=== PATIENT | female | born 1950 | race Caucasian/White ===

== ENCOUNTER 2017-01-24 07:30 | Inpatient (IN) | payer MEDICARE, BC ==
[2017-01-18 10:09] LABS: BASOPHILS 0.1 %; BASOPHILS ABSOLUTE 0.01 10/3/uL (0.0-0.16); EOSINOPHILS 0.3 %; EOSINOPHILS ABSOLUTE 0.02 10/3/uL (0.0-0.53); IMMATURE GRANULOCYTES 0.4 %; IMMATURE GRANULOCYTES ABSOLUTE 0.03 10/3/uL (0.0-0.11); LYMPHOCYTES 20.4 %; LYMPHOCYTES ABSOLUTE 1.51 10/3/uL (0.67-4.30); MEAN CORPUS HGB CONC 34.4 g/dL (32.0-36.0); MEAN CORPUSCULAR HEMOGLOB 30.5 pg (26.0-34.0); MEAN CORPUSCULAR VOLUME 88.8 fL (80-100); MEAN PLATELET VOLUME 9.7 fL (9.2-13.0); MONOCYTES 5.5 %; MONOCYTES ABSOLUTE 0.41 10/3/uL (0.21-1.20); NEUTROPHILS 73.3 %; NEUTROPHILS ABSOLUTE 5.43 10/3/uL (2.02-8.40); RBC DISTRIBUTION WIDTH 13.3 % (12.0-16.0); WHITE BLOOD CELLS 7.4 10/3/uL (4.5-10.5)
[2017-01-18 10:14] LABS: HEMATOCRIT 37.2 % (36.0-48.0); HEMOGLOBIN 12.8 g/dL (12.0-16.0); MANUAL DIFF NO %; PLATELET COUNT 168 10/3/uL (150-400); RED CELL COUNT 4.19 10/6/uL (4.0-5.6)
[2017-01-18 10:24] LABS: INTERNATIONAL NORMAL RATI 0.9 UNITS (-)
[2017-01-18 10:25] LABS: A/G RATIO 1.3 (0.7-1.9); ALBUMIN 3.9 G/DL (3.5-5.0); ALKALINE PHOSPHATASE 84 U/L (45-117); BUN (BLOOD UREA NITROGEN) 14 MG/DL (6-23); CALCIUM, SERUM 8.8 MG/DL (8.5-10.4); CHLORIDE, SERUM 102 MMOL/L (96-112); CO2 (CARBON DIOXIDE) 32 MMOL/L (24-34); CREATININE 0.71 MG/DL (0.55-1.02); GFR AFRICAN AMERICAN 104 ML/MIN (>=60); GFR NON AFRICAN AMERICAN 90 ML/MIN (>=60); GLOBULIN 2.9 G/DL (2.5-4.1); GLUCOSE, SERUM 139 MG/DL (60-99); POTASSIUM, SERUM 4.4 MMOL/L (3.5-5.3); SGOT(AST) 18 U/L (5-40); SGPT(ALT) 12 U/L (5-65); SODIUM, SERUM 139 MMOL/L (135-148); TOTAL BILIRUBIN 0.6 MG/DL (0-1.2); TOTAL PROTEIN 6.8 G/DL (6.0-8.5)
[2017-01-18 10:26] LABS: PROTIME (NOT ORD) 12.5 SEC (12.0-14.5)
[2017-01-18 11:05] LABS: ASCORBIC ACID (UR NOT ORDER) NEG (NEG); BILIRUBIN, URINE NEGATIVE (NEG); KETONE, URINE NEGATIVE (NEG); LEUKOCYTE ESTERASE(NOT OR NEG (NEG); WBC (NOT ORDERED) (RFLEX) 1 (0-5)
--- NOTE | ~2017-01-24 | DS ---
Discharge Summary [place] [address] [address] [place]. [address] NAME: ALVARO ALVARADO : 54 STATUS : DIS IN PAT#: [id number] AGE: 66 ADM/REG DATE : 01/24/17 MR#: [id number] REPORT SERV DATE: 02/03/17 DICTATED BY: VALENTINA SULLIVAN DATE: 02/02/17 REPORT STATUS : Draft TRANSCRIBED BY: KAYLENE DATE: 02/02/17 Data Collection from hospitalization DISCHARGE DIAGNOSIS(ES): 1. Failed left hip bipolar-type arthroplasty. 2. Osteoarthritis. 3. Insulin-dependent diabetes mellitus. 4. Hypercholesterolemia. 5. History of cerebrovascular accident. 6. Peripheral neuropathy. 7. Gastroesophageal reflux disease. 8. Asthma. 9. Sleep apnea. CONSULTATIONS: None. PROCEDURES PERFORMED: Left total hip revision arthroplasty, 01/24/2017. PATHOLOGY: Bone, soft tissue, and hardware, left hip joint replacement metallosis of the synovial tissue. No significant acute inflammation. Orthopedic hardware, gross diagnosis. MEDICATIONS: Xanax 0.5 mg three times daily; aspirin 81 mg daily; vitamin B12 at 1000 mcg IM every 30 days; desmopressin each nostril daily as directed; Colace 100 mg twice daily; Pepcid 20 mg twice daily; ferrous sulfate 300 mg with breakfast and supper; Cortef 20 mg at 0900 hours, 10 mg at 1500 hours; Lantus insulin 30 units at bedtime; NovoLog insulin level 2 sliding scale before meals and at bedtime; Synthroid 100 mcg every morning; MS Contin 60 mg every eight hours; Theragran tablet without minerals one with breakfast; Lopressor 25 mg twice daily; Coumadin as directed; Catapres 0.2 mg three times daily; OxyContin 10 mg twice daily; Mylanta 30 mL as needed; Tessalon 200 mg three times daily as needed; Dulcolax 10 mg rectally daily as needed; Symax-SL 0.125 mg three times daily as needed; Dramamine 50 mg every four to six hours as needed; milk of magnesia 30 mL as needed; Zofran 4 mg every four hours as needed; Percocet 5/325 two every four hours as needed; Afrin nasal spray two to three sprays each nostril as needed; MiraLAX powder one packet as needed daily; simethicone 125 mg as needed; Fleet's Enema 133 mL rectally daily as needed; [place] nasal spray one spray each nostril as needed; Ambien 10 mg at bedtime as needed. CONDITION AT DISCHARGE: Upon discharge, she did appear to be doing well and had no complaints. DISPOSITION: She had been discharged with transfer to [facility] to continue a diabetic diet. She was also to continue oxygen at 2 L by nasal cannula to maintain an O2 saturation at or above 92%. She was to continue with physical therapy and occupational therapy. She was to follow up with me in the office in two weeks. HOSPITAL COURSE: This 66-year-old female was seen in the clinic for followup with right knee pain x15 months. She was status post left femoral head replacement in 08/[address] Guaman. She had rated her pain at a 10 on a scale of 0 to 10 and she stated that she had fallen x3 since 2015. She was also status post right total knee arthroplasty in 02/1998 by Discharge [address] [address] NAME: ALVARO ALVARADO : 54 STATUS : DIS IN PAT#: [id number] AGE: 66 ADM/REG DATE : 01/24/17 MR#: [id number] REPORT SERV DATE: 02/03/17 DICTATED BY: VALENTINA SULLIVAN DATE: 02/02/17 REPORT STATUS : Draft TRANSCRIBED BY: KAYLENE DATE: 02/02/17 Dr. Guaman with patella pain, which she had rated as an 8 on a 0 to 10 pain scale. She stated that her pain was much worse. The location of her knee pain was medial and medial joint line. She had related difficulty with stairs, walking any distance, and getting in and out of the car. Her pain was worse upon arising and diminished by changing positions frequently. History of treatment included [place] wrap with relief, brace with relief, MS Contin with relief, and oxycodone with relief. She denied any prior physical therapy and denied prior injections. She was now admitted for surgery and further treatment. Upon admission to the hospital, she had been taken to the operating room, where she did undergo the above procedure. She had tolerated this well and was transferred to the recovery room. On postop day one, she did appear to be doing well and had no complaints. Her INR was at 1.1. She had been evaluated by Physical Therapy. She was placed on sliding scale insulin and her diet was being slowly advanced. On postop day two, she did continue to do well and was continued on her current medications. She had remained in stable condition and as she continued to slowly improve, she was then discharged on 01/28/2017 with the above instructions. Information collected by: Ruth Castanon. I submit the above information as my discharge summary. JERRELL/KAYLENE Lucy Sullivan M.D. / [id number] CC: Lucy Sullivan M.D. [facility]
--- NOTE | ~2017-01-24 | OP ---
Record Of Operation [facility] [address] [place]. [address] NAME: ALVARO ALVARADO : 54 STATUS : ADM IN PAT#: [id number] AGE: 66 ADM/REG DATE : 01/24/17 MR#: [id number] REPORT SERV DATE: 01/24/17 DICTATED BY: VALENTINA SULLIVAN DATE: 01/24/17 REPORT STATUS : Draft TRANSCRIBED BY: MODAndreia DATE: 01/24/17 DATE OF PROCEDURE: 01/24/2017 PREOPERATIVE DIAGNOSIS: Failed left hip bipolar type arthroplasty. POSTOPERATIVE DIAGNOSIS: Failed left hip bipolar type arthroplasty. PROCEDURE: Left total hip revision arthroplasty. PROCEDURE IN DETAIL: The patient was taken to the operating room and placed supine on the table in normal fashion without any incident. General anesthetic was induced per the anesthesiologist. The patient was carefully positioned, padded, prepped, and draped in normal sterile fashion. Sharp dissection was made through the old incision with electrocautery through the fat. IT band was split in line with its fibers. A standard posterior approach to the hip was carried out, we thinned out soft tissue off the posterior capsule. Posterior capsulectomy was performed. There was abundant metal debris containing synovial tissue that was meticulously debrided. The hip was dislocated. The bipolar components were removed. I freed up the proximal aspect of the femoral component with curette, rongeur, and osteotome and then disimpacted it with bone impactor. Sequential reamers were used and broaches. With trial put broach in place, I did a reduction after placing the acetabular component which was done by removing pulvinar fat and using sequential reamers up to a 51 and 52, multi hole cup was placed and impacted. It had excellent interference fit. Two screws placed in standard fashion, drill, depth gauge, and self-tapping screw placement. With a trial liner, there was excellent stability and excellent re-creation of leg length. Therefore, the actual liner was placed, impacted, checked to be sure it was sound and snug. The actual stem was then placed and impacted. I opted not to put a cable for a concern that her osteoporosis was so bad that it could actually cost fracture. She had excellent stability. Actual ball was placed on the cleansed trunnion. Hip was relocated and closed in layered fashion. The wound was dressed sterilely. The patient was awakened and taken to postanesthesia care unit without incident. COMPLICATIONS: None. SPECIMENS: Removed components and cultures. ESTIMATED BLOOD LOSS: About 100 mL. WTB/KAYLENE Lucy Sullivan M.D. / [id number] Record Of [address] [address] NAME: ALVARO ALVARADO : 54 STATUS : ADM IN [facility]#: [id number] AGE: 66 ADM/REG DATE : 01/24/17 MR#: [id number] REPORT SERV DATE: 01/24/17 DICTATED BY: VALENTINA SULLIVAN DATE: 01/24/17 REPORT STATUS : Draft TRANSCRIBED BY: KAYLENE DATE: 01/24/17 CC: Lucy Sullivan M.D.
[~2017-01-24 07:30] MED LIST: ACET500CAP PO; AFRIN15 NAS; AMB10 PO; ASAB PO; BENADRYL; BIOTIN PO; BISR PR; CAFFEINE PO; CAT2 PO; DDAVP 0.01%; DIMENHY50I PO; FLEETS ENEMA; GLUCAGEN IM; GLYCERIN; HUMALOG SC; HYDROCORTISONE; LACTAID PO; LANTUS SC; LOP25 PO; MIRALAX POWDER1 PKT PO; MORPHINE SULFATE ER PO; MYLANTA PO; MYTAB GAS125 MG PO; OXYCODONE IR PO; SALINE NASAL SPRAY; SOLU-CORTEF IJ; SYMAX-SL0.125 MG PO; SYN1 PO; TUSSIN CF; TYLENOL PO; VITAMIN B IJ; X5 PO; ZOFRAN4 PO
[2017-01-25 05:34] LABS: HEMOGLOBIN 11.2 g/dL (12.0-16.0)
[2017-01-25 05:35] LABS: HEMATOCRIT 32.4 % (36.0-48.0)
[2017-01-25 05:46] LABS: BUN (BLOOD UREA NITROGEN) 14 MG/DL (6-23); CALCIUM, SERUM 7.9 MG/DL (8.5-10.4); CHLORIDE, SERUM 97 MMOL/L (96-112); CO2 (CARBON DIOXIDE) 29 MMOL/L (24-34); CREATININE 0.69 MG/DL (0.55-1.02); GFR AFRICAN AMERICAN 107 ML/MIN (>=60); GFR NON AFRICAN AMERICAN 92 ML/MIN (>=60); POTASSIUM, SERUM 4.4 MMOL/L (3.5-5.3); SODIUM, SERUM 136 MMOL/L (135-148)
[2017-01-25 05:47] LABS: GLUCOSE, SERUM 187 MG/DL (60-99); INTERNATIONAL NORMAL RATI 1.1 UNITS (-); PROTIME (NOT ORD) 13.8 SEC (12.0-14.5)
[2017-01-26 04:28] LABS: BASOPHILS 0.1 %; BASOPHILS ABSOLUTE 0.01 10/3/uL (0.0-0.16); EOSINOPHILS 0.2 %; EOSINOPHILS ABSOLUTE 0.02 10/3/uL (0.0-0.53); HEMATOCRIT 30.9 % (36.0-48.0); HEMOGLOBIN 10.6 g/dL (12.0-16.0); IMMATURE GRANULOCYTES 0.5 %; IMMATURE GRANULOCYTES ABSOLUTE 0.05 10/3/uL (0.0-0.11); LYMPHOCYTES 19.7 %; LYMPHOCYTES ABSOLUTE 1.82 10/3/uL (0.67-4.30); MEAN CORPUS HGB CONC 34.3 g/dL (32.0-36.0); MEAN CORPUSCULAR HEMOGLOB 30.6 pg (26.0-34.0); MEAN CORPUSCULAR VOLUME 89.3 fL (80-100); MEAN PLATELET VOLUME 9.8 fL (9.2-13.0); MONOCYTES 5.4 %; NEUTROPHILS 74.1 %; NEUTROPHILS ABSOLUTE 6.84 10/3/uL (2.02-8.40); PLATELET COUNT 152 10/3/uL (150-400); RBC DISTRIBUTION WIDTH 12.9 % (12.0-16.0); RED CELL COUNT 3.46 10/6/uL (4.0-5.6); WHITE BLOOD CELLS 9.2 10/3/uL (4.5-10.5)
[2017-01-26 04:34] LABS: MANUAL DIFF NO %
[2017-01-26 04:35] LABS: INTERNATIONAL NORMAL RATI 1.9 UNITS (-)
[2017-01-26 04:38] LABS: BUN (BLOOD UREA NITROGEN) 14 MG/DL (6-23); CALCIUM, SERUM 8.2 MG/DL (8.5-10.4); CHLORIDE, SERUM 98 MMOL/L (96-112); CO2 (CARBON DIOXIDE) 31 MMOL/L (24-34); CREATININE 0.64 MG/DL (0.55-1.02); GFR AFRICAN AMERICAN 109 ML/MIN (>=60); GFR NON AFRICAN AMERICAN 94 ML/MIN (>=60); GLUCOSE, SERUM 160 MG/DL (60-99); POTASSIUM, SERUM 3.9 MMOL/L (3.5-5.3); SODIUM, SERUM 135 MMOL/L (135-148)
[2017-01-26 04:44] LABS: PROTIME (NOT ORD) 21.3 SEC (12.0-14.5)
[2017-01-27 06:05] LABS: INTERNATIONAL NORMAL RATI 2.5 UNITS (-)
[2017-01-27 06:08] LABS: BASOPHILS 0.1 %; BASOPHILS ABSOLUTE 0.01 10/3/uL (0.0-0.16); EOSINOPHILS 0.4 %; EOSINOPHILS ABSOLUTE 0.03 10/3/uL (0.0-0.53); HEMOGLOBIN 11.7 g/dL (12.0-16.0); IMMATURE GRANULOCYTES 0.7 %; IMMATURE GRANULOCYTES ABSOLUTE 0.05 10/3/uL (0.0-0.11); LYMPHOCYTES 26.4 %; LYMPHOCYTES ABSOLUTE 1.93 10/3/uL (0.67-4.30); MEAN CORPUS HGB CONC 34.4 g/dL (32.0-36.0); MEAN CORPUSCULAR HEMOGLOB 31.1 pg (26.0-34.0); MEAN CORPUSCULAR VOLUME 90.4 fL (80-100); MEAN PLATELET VOLUME 9.7 fL (9.2-13.0); MONOCYTES 6.8 %; NEUTROPHILS 65.6 %; NEUTROPHILS ABSOLUTE 4.79 10/3/uL (2.02-8.40); PLATELET COUNT 167 10/3/uL (150-400); RBC DISTRIBUTION WIDTH 12.9 % (12.0-16.0); RED CELL COUNT 3.76 10/6/uL (4.0-5.6); WHITE BLOOD CELLS 7.3 10/3/uL (4.5-10.5)
[2017-01-27 06:09] LABS: PROTIME (NOT ORD) 27.1 SEC (12.0-14.5)
[2017-01-27 06:14] LABS: MANUAL DIFF NO %
[2017-01-27 06:15] LABS: BUN (BLOOD UREA NITROGEN) 12 MG/DL (6-23); CALCIUM, SERUM 8.6 MG/DL (8.5-10.4); CHLORIDE, SERUM 103 MMOL/L (96-112); CO2 (CARBON DIOXIDE) 31 MMOL/L (24-34); CREATININE 0.63 MG/DL (0.55-1.02); GFR AFRICAN AMERICAN 110 ML/MIN (>=60); GFR NON AFRICAN AMERICAN 95 ML/MIN (>=60); POTASSIUM, SERUM 4.1 MMOL/L (3.5-5.3)
[2017-01-27 06:17] LABS: GLUCOSE, SERUM 107 MG/DL (60-99); SODIUM, SERUM 143 MMOL/L (135-148)
[2017-01-28 05:19] LABS: PROTIME (NOT ORD) 30.5 SEC (12.0-14.5)
== END 2017-01-28 14:47 | DRG 467 ==
LOC: SDC/OF 07:30 → PACU 12:00 → 3JRC 13:42
PROVIDERS: Specialist
PROC: 0SWB0JZ Revision of Synthetic Substitute in Left Hip Joint, Open Approach (ICD-10-PCS; principal; 2017-01-24 09:00)
DX: T84.091A Other mechanical complication of internal left hip prosthesis, initial encounter (principal); E27.40 Unspecified adrenocortical insufficiency; I10 Essential (primary) hypertension; J45.909 Unspecified asthma, uncomplicated; E78.00 Pure hypercholesterolemia, unspecified; I34.0 Nonrheumatic mitral (valve) insufficiency; K21.9 Gastro-esophageal reflux disease without esophagitis; Z79.899 Other long term (current) drug therapy; E11.9 Type 2 diabetes mellitus without complications
CPT/HCPCS: 36415; 71020; 72170; 80048; 80053; 81001; 82962; 85014; 85018; 85025; 85610; 86850; 86900; 86901; 87015; 87070; 87075; 87102; 87116; 87205; 87641; 88304; 88311; 93005; 97110-GP; 97116-GP; 97163-GP; 97164-GP; 97166-GO; 97535-GO; A9270-GY; C1713; C1776; G8978-CL-GP; G8978-CM-GP; G8979-CJ-GP; G8979-CL-GP; J0690; J1170; J1720; J1885; J2175; J2250; J2274; J2370; J2405; J2710; J2795; J3010

== ENCOUNTER 2017-02-07 13:07 | Inpatient (IN) | payer MEDICARE, BC ==
--- NOTE | ~2017-02-07 | HP ---
History And Physical [place] [address] [place]. [address] NAME: ALVARO ALVARADO : 54 STATUS : ADM IN [facility]#: [id number] AGE: 66 ADM/REG DATE : 02/07/17 MR#: [id number] REPORT SERV DATE: 02/07/17 DICTATED BY: VALENTINA SULLIVAN DATE: 02/07/17 REPORT STATUS : Draft TRANSCRIBED BY: MODAndreia DATE: 02/07/17 DATE OF ADMISSION: 02/07/2017 CHIEF COMPLAINT: Left hip pain. HISTORY OF PRESENT ILLNESS: A 66 year female with left total hip revision a couple of weeks ago. She has multiple medical challenges and from her history, it is not clear how long her leg has been hurting and short, and concerned that it was dislocated. To that end, I have discussed with her closed versus possible open reduction. ALLERGIES: MANY, SEE LONG LIST ON CHART. MEDICATIONS: See chart. PAST MEDICAL HISTORY: Arthritis, history of cancer, heart murmur, insulin-dependent diabetes, gastric ulcers, hypercholesterolemia, infection, dental implants, reflux, GERD, asthma, sleep apnea. PAST SURGICAL HISTORY: Appendectomy, cataracts, hip replacements as noted with a recent revision, total knee replacement, skin biopsies, pituitary gland removal, carotid endarterectomy, bilateral partial and middle turbinectomies, removal of ethmoid sinus, open biopsy of the breast in 1997. She had a previous hip replacement revision in 1996, total shoulder in 1995, arthroscopic surgery of the shoulder in 1992, a basal cell cancer and repair of her clitoris in 1980 with partial vulvectomy in 1980, removal of ovary on the right in 1977 and the left in 1975. FAMILY HISTORY: No known anesthetic complications. SOCIAL HISTORY: Never smoked and never used alcohol. PHYSICAL EXAMINATION: GENERAL: She is alert and oriented x3, in no apparent distress. HEENT: Atraumatic, normocephalic. NECK: Supple. CHEST: Symmetric, nontender. LUNGS: Per AA evaluation. CV: Regular. ABDOMEN: Soft. No mass. EXTREMITIES: Both upper extremities and both lower extremities without acute trauma except for left lower extremity is short and rotated. Skin is intact. Compartment supple. 2+ pulses. NEURO: Sensorimotor without deficit. X-RAY: Dislocated left hip revision. ASSESSMENT: Left hip revision and multiple medical issues with dislocation. History And Physical [place] [address] [place]. [address] NAME: ALVARO ALVARADO : 54 STATUS : ADM IN PAT#: [id number] AGE: 66 ADM/REG DATE : 02/07/17 MR#: [id number] REPORT SERV DATE: 02/07/17 DICTATED BY: VALENTINA SULLIVAN DATE: 02/07/17 REPORT STATUS : Draft TRANSCRIBED BY: MODL DATE: 02/07/17 PLAN: Open versus closed reduction. Risks, benefits, etc. Were explained at length, and the patient wishes to proceed. WTB/MODL Lucy Sullivan M.D. / [id number] CC: Lucy Sullivan M.D.
--- NOTE | ~2017-02-07 | DS ---
Discharge Summary [place] [address] [address] [place]. [address] NAME: ALVARO ALVARADO : 54 STATUS : DIS IN PAT#: [id number] AGE: 66 ADM/REG DATE : 02/07/17 MR#: [id number] REPORT SERV DATE: 02/18/17 DICTATED BY: VALENTINA SULLIVAN DATE: 02/17/17 REPORT STATUS : Draft TRANSCRIBED BY: KAYLENE DATE: 02/17/17 Data Collection from hospitalization DISCHARGE DIAGNOSES: 1. Left hip periprosthetic fracture with displacement. 2. Insulin-dependent diabetes. 3. Sleep apnea. 4. Asthma. 5. Gastroesophageal reflux disease. 6. Hypercholesterolemia. 7. Gastric ulcers. 8. Heart murmur. 9. History of cerebrovascular accident. 10.History of gastroparesis. CONSULTATIONS: None. PROCEDURES PERFORMED: Left hip revision/open reduction internal fixation on 02/07/2017. PATHOLOGY: Bone, soft tissue and surgical hardware, left hip, arthroplasty - surgical site changes including granulation tissue and particulate debris, surgical hardware (see gross description). No infection or neoplasm. MEDICATIONS: Xanax 0.5 mg three times a day, aspirin 81 mg daily, vitamin B12 1000 mcg IM every 30 days, DDAVP nasal spray one spray in each nostril daily, Colace 100 mg twice a day, Pepcid 20 mg twice a day, ferrous sulfate 300 mg with breakfast and supper, NovoLog injection insulin as instructed, levothyroxine 100 mcg daily, Lidoderm two patches topically daily, miconazole one application topically daily, MS Contin 60 mg every eight hours, Theragran tablets one tablet with breakfast, Lopressor 25 mg twice a day, MiraLAX powder one packet twice a day, Metamucil one packet daily, OxyContin 10 mg every 12 hours, Levemir 20 units subcutaneously at bedtime and 20 units subcutaneously daily, Tylenol 650 mg every four hours as needed, Mylanta 30 mL every four hours as needed, Tessalon 200 mg three times a day as needed, Dulcolax 10 mg per rectum daily as needed, Benadryl 25 mg every six hours as needed, Symax 0.125 mg three times a day as needed, milk of magnesia 30 mL daily as needed, Nitrostat 0.4 mg sublingually as needed, Zofran 4 mg every four hours as needed, Percocet 5/325 one tablet every four hours as needed, Afrin nasal spray three sprays nasally twice a day as needed, Gas-X 120 mg four times a day as needed, [place] Nasal [place] one spray nasally four times a day as needed, Ambien 5 mg at bedtime as needed, Catapres 0.1 mg every eight hours as instructed, Cortef 20 mg daily, desmopressin one spray nasally daily, and Maalox 30 mL every four hours as needed. CONDITION AT DISCHARGE: Stable. DISPOSITION: The patient was discharged to [facility] on a diabetic diet with activities as instructed. She would follow up with me as needed. HOSPITAL COURSE: This is a 66-year-old female who had a left total hip revision a couple of weeks prior to this admission. She had multiple medical challenges, and from her history, Discharge Summary [place] [address] [facility] [place]. [address] NAME: ALVARO ALVARADO : 54 STATUS : DIS IN PAT#: [id number] AGE: 66 ADM/REG DATE : 02/07/17 MR#: [id number] REPORT SERV DATE: 02/18/17 DICTATED BY: VALENTINA SULLIVAN DATE: 02/17/17 REPORT STATUS : Draft TRANSCRIBED BY: KAYLENE DATE: 02/17/17 it was not clear how long her leg had been hurting. There was concern that it was dislocated. Treatment options were discussed, including close versus possible open reduction. She was felt to have a dislocated left hip revision. She was admitted to the hospital at this time for further evaluation and treatment. Upon admission, the patient was taken to the operating room where she underwent the above- mentioned procedure. She tolerated this well, and there were no complications. On postop day #1, she was evaluated by Occupational and Physical Therapy. She complained of having to void frequently. Over the next couple of days, she began to do much better. She was up sitting in a bedside chair. SAMINA hose remained in place. Discharge planning was performed. Coumadin was placed on hold. On 02/10/2017, she continued to do well. Discharge instructions were given. Due to her improved and stable condition, she was discharged to [facility] with the above-stated instructions. Information collected by: Dori Lara I submit the above information as my discharge summary. STEFANIE/KAYLENE Lucy Sullivan M.D. / [id number] CC: Lucy Sullivan M.D. [facility]
--- NOTE | ~2017-02-07 | OP ---
Record Of Operation [facility] [address] [place]. [address] NAME: ALVARO ALVARADO : 54 STATUS : ADM IN PAT#: [id number] AGE: 66 ADM/REG DATE : 02/07/17 MR#: [id number] REPORT SERV DATE: 02/08/17 DICTATED BY: VALENTINA SULLIVAN DATE: 02/08/17 REPORT STATUS : Draft TRANSCRIBED BY: MODAndreia DATE: 02/08/17 DATE OF PROCEDURE: 02/07/2017 PREOPERATIVE DIAGNOSIS: Left hip revision dislocation. POSTOPERATIVE DIAGNOSIS: Left hip periprosthetic fracture with displacement. PROCEDURE: Left hip revision/ORIF. MOTHER REPAIRER: See chart. INDICATIONS: A 66-year-old female with left total hip revision arthroplasty, was doing well, but had some poorly described event, and was unable to walk with severe pain for the last couple of days, presented with a dislocation and was brought for evaluation intraoperatively. PROCEDURE IN DETAIL: The patient was taken to the operating room and placed supine on the table in normal fashion without incident. General anesthetic was induced per the anesthesiologist. The patient was carefully positioned under fluoroscopic guidance, I can easily reduce the ball back into the socket, but it came right back out again. At this point, it was obvious there was either some interposed soft tissue or some further problem, therefore we opted for open operative intervention. She was carefully positioned, padded, prepped, and draped in normal sterile fashion. Sharp dissection was made through the old incision with electrocautery through the fat. Hematoma was decompressed and examination of the proximal femur became apparent that she had a linear fracture in a plane such that it could not be visualized and needed AP or lateral x-rays (she mentioned she has had several sats postoperatively) and the femoral component had displaced close to an inch distally into her femur. The femoral component was removed. Attention was directed to the acetabulum, but the acetabular liner was taken out. Two additional screws were placed in a standard fashion with a drill, depth gauge, and self-tapping screw placement bringing her screw count up to four in the acetabulum. With the trial liner placed, attention was directed back to the proximal femur. A prophylactic cable was passed just at the distal aspect of the fracture in the subtrochanteric region staying right on the bone, another cable passed just inferior to the lesser trochanter. Sequential reamers were then used up to a 16 and broaches to a 16.5. This recreated leg length and stability appropriately on trial reduction. The stem was removed, actual 16.5 x 8 inch straight stem was placed and impacted, after tightening the cables that were previously placed and they were crimped around it. This gave excellent fixation. Because of her very weak soft tissues in her bone, two other cables were passed around the trochanter which appeared to have some mobility to it and one was passed around the proximal collar of the prosthesis, one through the hole and this was tightened down through a trochanteric geological aide to fix the trochanter down. A constrained liner was placed in the acetabulum. The hip was relocated, locking ring placed around it. The trochanteric geological aide and cables were then tightened, crimped, and cut short. This gave excellent fixation. This also gave excellent re-creation of the leg length. The wound was irrigated, closed, and dressed sterilely. It was closed in a layered fashion over a drain distally and anteriorly. I also placed some TXA because of a recent Record Of Operation [address] [place]. [address] NAME: ALVARO ALVARADO : 54 STATUS : ADM IN [facility]#: [id number] AGE: 66 ADM/REG DATE : 02/07/17 MR#: [id number] REPORT SERV DATE: 02/08/17 DICTATED BY: VALENTINA SULLIVAN DATE: 02/08/17 REPORT STATUS : Draft TRANSCRIBED BY: MODL DATE: 02/08/17 surgery and some prophylactic antibiotic containing beads. COMPLICATIONS: None. SPECIMENS: None. ESTIMATED BLOOD LOSS: About 250 mL. WTB/MODL Lucy Sullivan M.D. / [id number]
[2017-02-07 15:30] LABS: BASOPHILS 0.2 %; BASOPHILS ABSOLUTE 0.02 10/3/uL (0.0-0.16); EOSINOPHILS 0 %; HEMOGLOBIN 12.2 g/dL (12.0-16.0); IMMATURE GRANULOCYTES 0.5 %; IMMATURE GRANULOCYTES ABSOLUTE 0.05 10/3/uL (0.0-0.11); LYMPHOCYTES 13.1 %; LYMPHOCYTES ABSOLUTE 1.24 10/3/uL (0.67-4.30); MEAN CORPUS HGB CONC 33.5 g/dL (32.0-36.0); MEAN CORPUSCULAR HEMOGLOB 30.3 pg (26.0-34.0); MEAN CORPUSCULAR VOLUME 90.3 fL (80-100); MONOCYTES ABSOLUTE 0.47 10/3/uL (0.21-1.20); NEUTROPHILS 81.2 %; NEUTROPHILS ABSOLUTE 7.71 10/3/uL (2.02-8.40); RBC DISTRIBUTION WIDTH 13.4 % (12.0-16.0); RED CELL COUNT 4.03 10/6/uL (4.0-5.6); WHITE BLOOD CELLS 9.5 10/3/uL (4.5-10.5)
[2017-02-07 15:31] LABS: HEMATOCRIT 36.4 % (36.0-48.0); MANUAL DIFF NO %; PLATELET COUNT 373 10/3/uL (150-400)
[2017-02-07 15:37] LABS: INTERNATIONAL NORMAL RATI 1.8 UNITS (-); PROTIME (NOT ORD) 20.7 SEC (12.0-14.5)
[2017-02-07 15:47] LABS: CHLORIDE, SERUM 101 MMOL/L (96-112); CO2 (CARBON DIOXIDE) 36 MMOL/L (24-34); CREATININE 0.67 MG/DL (0.55-1.02); GFR AFRICAN AMERICAN 108 ML/MIN (>=60); GFR NON AFRICAN AMERICAN 93 ML/MIN (>=60); SODIUM, SERUM 142 MMOL/L (135-148)
[2017-02-07 15:48] LABS: BUN (BLOOD UREA NITROGEN) 13 MG/DL (6-23); GLUCOSE, SERUM 171 MG/DL (60-99)
[2017-02-07] MEDS ORDERED: X5 PO (15:58)
[2017-02-07] MEDS ORDERED: ASAB PO (15:58)
[2017-02-07] MEDS ORDERED: CAT1 PO (15:59)
[2017-02-07] MEDS ORDERED: PEP20 PO (15:59)
[2017-02-07] MEDS ORDERED: B121000P IM (15:59)
[2017-02-07] MEDS ORDERED: CORTEF20 MG PO (16:00)
[2017-02-07] MEDS ORDERED: NOVOLOG SC ×2 (16:00→16:02)
[2017-02-07] MEDS ORDERED: LANTUSCART SC (16:02)
[2017-02-07] MEDS ORDERED: LIDODERM TOP (16:04)
[2017-02-07] MEDS ORDERED: LOP25 PO (16:05)
[2017-02-07] MEDS ORDERED: MICONAZOLE CREA30 GM TOP (16:05)
[2017-02-07] MEDS ORDERED: MSCONT60 PO (16:06)
[2017-02-07] MEDS ORDERED: MIRALAX POWDER1 PKT PO (16:07)
[2017-02-07] MEDS ORDERED: OXYCON10 PO (16:07)
[2017-02-07] MEDS ORDERED: METPAKSF PO (16:07)
[2017-02-07] MEDS ORDERED: DESMOPRESSIN NAS (16:08)
[2017-02-07] MEDS ORDERED: C5 PO (16:08)
[2017-02-07] MEDS ORDERED: TESSALON200 MG PO (16:10)
[2017-02-07] MEDS ORDERED: MAALOX PO (16:10)
[2017-02-07] MEDS ORDERED: BISR PR (16:10)
[2017-02-07] MEDS ORDERED: MOMUD PO (16:11)
[2017-02-07] MEDS ORDERED: SYMAX-SL0.125 MG PO (16:11)
[2017-02-07] MEDS ORDERED: NITROSTAT0.4 MG SL (16:12)
[2017-02-07] MEDS ORDERED: ZOFRAN4 PO (16:12)
[2017-02-07] MEDS ORDERED: AFRIN15 NAS (16:13)
[2017-02-07] MEDS ORDERED: OXYCOD PO (16:13)
[2017-02-07] MEDS ORDERED: GAS-X80 MG PO (16:13)
[2017-02-07] MEDS ORDERED: FLEETS ENEMA PR (16:14)
[2017-02-07] MEDS ORDERED: OCEAN NAS (16:14)
[2017-02-07] MEDS ORDERED: AMB5 PO (16:15)
[2017-02-07] MEDS ORDERED: LEVOTHYROXIN100 MCG PO (16:41)
[2017-02-08 04:37] LABS: HEMOGLOBIN 9.8 g/dL (12.0-16.0)
[2017-02-08 04:38] LABS: HEMATOCRIT 29.1 % (36.0-48.0)
[2017-02-08 04:40] LABS: INTERNATIONAL NORMAL RATI 2.4 UNITS (-)
[2017-02-08 04:42] LABS: PROTIME (NOT ORD) 25.5 SEC (12.0-14.5)
[2017-02-08 04:54] LABS: BUN (BLOOD UREA NITROGEN) 14 MG/DL (6-23); CHLORIDE, SERUM 100 MMOL/L (96-112); GFR AFRICAN AMERICAN 90 ML/MIN (>=60); GFR NON AFRICAN AMERICAN 78 ML/MIN (>=60); GLUCOSE, SERUM 191 MG/DL (60-99); POTASSIUM, SERUM 3.7 MMOL/L (3.5-5.3); SODIUM, SERUM 140 MMOL/L (135-148)
[2017-02-08 04:55] LABS: CO2 (CARBON DIOXIDE) 31 MMOL/L (24-34)
[2017-02-09 04:37] LABS: CALCIUM, SERUM 8.3 MG/DL (8.5-10.4); CHLORIDE, SERUM 101 MMOL/L (96-112); CO2 (CARBON DIOXIDE) 35 MMOL/L (24-34); CREATININE 0.63 MG/DL (0.55-1.02); GFR AFRICAN AMERICAN 110 ML/MIN (>=60); GFR NON AFRICAN AMERICAN 95 ML/MIN (>=60); GLUCOSE, SERUM 217 MG/DL (60-99); POTASSIUM, SERUM 3.5 MMOL/L (3.5-5.3); SODIUM, SERUM 141 MMOL/L (135-148)
[2017-02-09 04:38] LABS: BUN (BLOOD UREA NITROGEN) 7 MG/DL (6-23)
[2017-02-09 04:40] LABS: INTERNATIONAL NORMAL RATI 4.2 UNITS (-)
[2017-02-09 04:41] LABS: PROTIME (NOT ORD) 40.4 SEC (12.0-14.5)
[2017-02-09 04:55] LABS: HEMATOCRIT 28.7 % (36.0-48.0); HEMOGLOBIN 9.7 g/dL (12.0-16.0); MEAN CORPUS HGB CONC 33.8 g/dL (32.0-36.0); MEAN CORPUSCULAR HEMOGLOB 30.5 pg (26.0-34.0); MEAN CORPUSCULAR VOLUME 90.3 fL (80-100); MEAN PLATELET VOLUME 9.2 fL (9.2-13.0); NUCLEATED RED BLOOD CELLS 0.5 /100WBC (0-0); PLATELET COUNT 397 10/3/uL (150-400); RBC DISTRIBUTION WIDTH 13.6 % (12.0-16.0)
[2017-02-09 04:57] LABS: MANUAL DIFF YES %; RED CELL COUNT 3.18 10/6/uL (4.0-5.6); WHITE BLOOD CELLS 13.5 10/3/uL (4.5-10.5)
[2017-02-09 05:03] LABS: LYMPHOCYTES 11 %; LYMPHOCYTES ABSOLUTE (CALC) 1.49 10/3/uL (0.67-4.30); MONOCYTES 3 %; MONOCYTES ABSOLUTE (CALC) 0.41 10/3/uL (0.21-1.20); NEUTROPHILS ABSOLUTE (CALC) 11.61 10/3/uL (2.02-8.40); PLATELET ESTIMATE ADQ (ADEQUATE); SEGMENTED NEUTROPHIL (0) 86 %; TOTAL NUCLEATED CELLS 100
[2017-02-09 05:04] LABS: RBC MORPHOLOGY NORM (NORMAL)
[2017-02-10 04:40] LABS: HEMOGLOBIN 7.9 g/dL (12.0-16.0)
[2017-02-10 04:43] LABS: INTERNATIONAL NORMAL RATI 3.5 UNITS (-); PROTIME (NOT ORD) 34.6 SEC (12.0-14.5)
[2017-02-10 04:50] LABS: HEMATOCRIT 24.2 % (36.0-48.0)
== END 2017-02-10 16:04 | DRG 467 ==
LOC: 3SO 13:07
PROVIDERS: Specialist
PROC: 0SPB0JZ Removal of Synthetic Substitute from Left Hip Joint, Open Approach (ICD-10-PCS; 2017-02-07)
PROC: 0SRB02Z Replacement of Left Hip Joint with Metal on Polyethylene Synthetic Substitute, Open Approach (ICD-10-PCS; principal; 2017-02-07 16:15)
PROC: 0SPB09Z Removal of Liner from Left Hip Joint, Open Approach (ICD-10-PCS; 2017-02-07 16:15)
PROC: 0SUB09Z Supplement Left Hip Joint with Liner, Open Approach (ICD-10-PCS; 2017-02-07 16:15)
DX: S72.002A Fracture of unspecified part of neck of left femur, initial encounter for closed fracture (principal); D68.59 Other primary thrombophilia; E24.9 Cushing's syndrome, unspecified; W18.30XA Fall on same level, unspecified, initial encounter; E11.9 Type 2 diabetes mellitus without complications; K21.9 Gastro-esophageal reflux disease without esophagitis; I10 Essential (primary) hypertension; E78.5 Hyperlipidemia, unspecified; E03.9 Hypothyroidism, unspecified
CPT/HCPCS: 36415; 72170; 80048; 82962; 85014; 85018; 85025; 85610; 86850; 86900; 86901; 86920; 88300; 88304; 88311; 97110-GP; 97116-GP; 97161-GP; 97164-GP; 97167-GO; 97535-GO; A9270-GY; C1713; C1776; G8978-CL-GP; G8979-CJ-GP; J0330; J0690; J1170; J1720; J1885; J2274; J2370; J2405; J2710; J2795; J3010; J3260; J3370

== ENCOUNTER 2017-03-05 11:46 | Inpatient (IN) | payer MEDICARE, BC ==
--- NOTE | ~2017-03-05 | CN ---
Consultation Report [facility] [address] [place]. [address] NAME: ALVARO ALVARADO : 54 STATUS : ADM IN PAT#: [id number] AGE: 66 ADM/REG DATE : 03/05/17 MR#: [id number] REPORT SERV DATE: 03/06/17 DICTATED BY: DATE: REPORT STATUS : Draft TRANSCRIBED BY: MODL DATE: 03/06/17 DATE OF CONSULTATION: REASON FOR CONSULTATION: Diabetes insipidus. HISTORY OF PRESENT ILLNESS: Ms. Alvarado is a 66-year-old white female followed for a significant amount of time by Dr. Tony for her diabetes insipidus, which has been stable now for some time on her DDAVP one time daily. Her sodiums are actually stable at this time, however, and she was a bit concerned and therefore we were consulted. There was a concern because she was having lower extremity edema. Dr. Leger, her director peoplesoft had suggested maybe holding the DDAVP and stated that edema would go away with that. However, the patient's sodium has already gone from 137-143 today. She has had some recent hypokalemia that started after taking Kayexalate for hyperkalemia at rehab at [facility]. She ended up having to have a couple of surgeries due to left hip avascular necrosis and was there for physical therapy. She has been out for approximately two weeks now. She does have significant cellulitis to the left lower extremity. Her edema has improved. She is having frequent urination and has already gone five times today. No other symptoms at this time and potassium is up to 3.8. 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 SOCIAL HISTORY: She is . No tobacco, alcohol, or illicit drug use. FAMILY MEDICAL HISTORY: Cancer. ALLERGIES: SHE HAS A QUITE EXTENSIVE LIST, WHICH IS BETA-BLOCKERS, ORAL HYPOGLYCEMICS, WINSOME INHIBITORS, FENTANYL, NSAIDS, TETRACYCLINE, , SULFA, THEOPHYLLINE, BUTALBITAL, MORPHINE, ASPIRIN, AMPHETAMINE, DEXTROAMPHETAMINE, ATENOLOL, FUROSEMIDE, ERYTHROMYCIN BASE, AMPHOTERICIN-B, METFORMIN, METOCLOPRAMIDE, MIRAPEX, RELISTOR, LINZESS, AND MOVANTIK. REVIEW OF SYSTEMS: 12-point review of systems obtained and negative with the exception of that in the HPI. PHYSICAL EXAMINATION: VITAL SIGNS: Temp 98.1, blood pressure 145/65, pulse 86, respiratory rate 18, O2 saturation is 96%. GENERAL: This is a pleasant, cooperative, white female. She is awake, alert, oriented, sitting up on the side of bed, in no acute distress. Answers question appropriately. HEENT: Normocephalic, atraumatic. Conjunctivae clear. Sclerae anicteric. Pupils are equal and round. Oral mucosa is moist. Consultation Report [address] [place]. [address] NAME: ALVARO ALVARADO : 54 STATUS : ADM IN [facility]#: [id number] AGE: 66 ADM/REG DATE : 03/05/17 MR#: [id number] REPORT SERV DATE: 03/06/17 DICTATED BY: DATE: REPORT STATUS : Draft TRANSCRIBED BY: MODL DATE: 03/06/17 NECK: Supple. Carotids are brisk. Neck veins flat. No lymphadenopathy. LUNGS: Respirations are even and unlabored. Breath sounds are clear to auscultation. HEART: Rate is regular with a 2/6 systolic ejection murmur. No rub or gallop. ABDOMEN: Obese, soft, nontender. Bowel sounds active. No masses or hepatosplenomegaly. No bruits. No CVA tenderness. BACK: Within normal limits. EXTREMITIES: No cyanosis or clubbing. She has trace edema to the right and 1+ to the left, and erythema that is within the skin marker on to the left lower extremity. NEURO: No focal deficits. Mood and affect, pleasant and appropriate. PERTINENT LABS AND X-RAYS: Sodium 143, potassium 3.8, chloride 105, CO2 of 34, BUN of 12, creatinine of 0.68. Calcium is 8.8. WBC 6.7, H and H 9 and 32, and platelets 325,000. IMPRESSION: 1. Diabetes insipidus, maintained well on DDAVP and stable. 2. Left lower extremity cellulitis. Antibiotics per Primary. 3. Edema, improved. 4. Hypokalemia, improved. 5. Avascular necrosis to the left hip with surgery x2. Also, knee fractures per patient followed by Dr. Wells. 6. Diabetes with recent hypoglycemia, managed by Dr. Leger. 7. Adrenal insufficiency. 8. Hypertension. PLAN/SUGGESTIONS: Sodium seems stable and potassium improved with continued current DDAVP. I would not skip a dose given that her sodium is already elevated since she has gotten here in the hospital. We will continue on her usual dose. If her sodium is stable, we will sign off and she can follow up with Dr. Tony as an outpatient. We will be glad to see her as needed here in the hospital. Thank you for the consult. GILBERTO/KAYLENE IRINEO Peguero / [id number] CC: Carlitos Glover NATHAN
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
--- NOTE | ~2017-03-05 | DS ---
Discharge Summary [facility] [address] [place]. [address] NAME: ALVARO ALVARADO : 54 STATUS : DIS IN PAT#: [id number] AGE: 66 ADM/REG DATE : 03/05/17 MR#: [id number] REPORT SERV DATE: 03/09/17 DICTATED BY: GLENDA JAMESON DATE: 03/08/17 REPORT STATUS : Draft TRANSCRIBED BY: MODL DATE: 03/08/17 ADMISSION DATE: 03/05/2017 DISCHARGE DATE: 03/08/2017 CONSULTING PHYSICIANS: 1. Dr. Wells for Ortho. 2. Dr. Liao for outpatient market research coordinator and Dr. Tony. 3. Tan Room Supervisor, Dr. Debbie Leger. FINAL DIAGNOSES: 1. Left lower extremity cellulitis, improving. 2. Left knee meniscal tear. 3. Cobb hypopituitarism. 4. Diabetes insipidus. 5. Diabetes mellitus. 6. Hypertension. 7. Status post hypokalemia. 8. Chronic pain. 9. Anxiety. 10.Chronic anemia. DIAGNOSTIC EXAMS: Chest x-ray showing bibasilar atelectasis. Otherwise, no acute cardiopulmonary abnormality. Borderline enlargement of the cardiac silhouette for technique. MRI of the left lower leg showing medial and lateral meniscal tears. No other internal derangement. Extensive bone infarcts. Superficial subcutaneous edema is consistent with a history of cellulitis. No focal collection is demonstrated. No joint effusion. HOSPITAL COURSE: Please refer to the H and P done by myself dated on 03/05/2017. Briefly, this is a 66-year-old female who comes in for left leg pain. The patient has a history of cobb hypopituitarism, avascular necrosis of with multiple joint replacements, and was recently treated for UTI with Cipro. The patient then started having some left knee leg pain and erythema. She went then to the emergency room and was admitted for cellulitis. She was started on Ancef, and the patient slowly got better. On discharge, her cellulitis is much better than when she came in. She mentioned that she was diagnosed with left knee fracture. We got Dr. Wells involved, got an MRI which shows the above test. He said that there will be no surgery needed at this time, continue the brace that she is doing, and follow up with him on an outpatient basis. Meanwhile, she was worried about her diabetes insipidus and wanted to see Dr. Tony. We got his partner Dr. Liao involved and mentioned that she needs to continue her DDAVP and to make sure that she has the same intake as much as her output. She was complaining of some bladder spasm, we started her on Pyridium, check her urine, and there was no infection seen. We believe that this might be secondary to her diabetes insipidus with that kind of bladder fullness that she was feeling. The patient did not want any inpatient rehab. She just wants to continue her home health, home PT, and home OT, and she will need to follow up with her PCP, Dayo Jarquin, in one to two weeks. Follow up with endocrinology Dr. Leger, follow up with nephrology Dr. Tony Discharge Summary [address] [address] NAME: ALVARO ALVARADO : 54 STATUS : DIS IN PAT#: [id number] AGE: 66 ADM/REG DATE : 03/05/17 MR#: [id number] REPORT SERV DATE: 03/09/17 DICTATED BY: GLENDA JAMESON DATE: 03/08/17 REPORT STATUS : Draft TRANSCRIBED BY: KAYLENE DATE: 03/08/17 within the next 8 weeks and follow up with Ortho, Dr. Wells as scheduled. DISCHARGE MEDICATIONS: The patient will be on the following medications: Duricef 1 g p.o. b.i.d. for one week and resume her regular home medications, which are Xanax 0.5 mg t.i.d., aspirin once a day, cyanocobalamin 1000 mcg IM q.30 days, Cortef 20 mg in the morning and 10 mg after lunch, Lantus down to 14 units at bedtime, Synthroid 100 mcg, morphine 60 mg every eight hours, Lopressor 25 mg twice a day, MiraLAX 17 g a day, Coumadin 2.5 mg with supper, Catapres 0.1 mg three times a day, DDAVP 10 mcg nasal inhaled a day, Humalog per sliding scale, oxycodone, glucagon, hydrocortisone p.r.n., Ambien, Levsin, Zofran, Mylanta, Dramamine, Dulcolax p.r.n., glycerin suppository and enema, nasal spray, Robitussin, Benadryl, Tylenol p.r.n., and vitamin D3 of 400 units a day. This has been explained to the patient. TIME SPENT: 35 minutes. ELIGIO/KAYLENE Glenda Jameson M.D. / [id number] CC: Carlitos Meadows M.D. John McCarley, M.D. Debbie Leger M.D.
[2017-03-05 10:50] LABS: BASOPHILS 0.2 %; BASOPHILS ABSOLUTE 0.01 10/3/uL (0.0-0.16); EOSINOPHILS 0 %; HEMATOCRIT 28.5 % (36.0-48.0); HEMOGLOBIN 8.8 g/dL (12.0-16.0); IMMATURE GRANULOCYTES 0.4 %; IMMATURE GRANULOCYTES ABSOLUTE 0.02 10/3/uL (0.0-0.11); LYMPHOCYTES 8.5 %; LYMPHOCYTES ABSOLUTE 0.45 10/3/uL (0.67-4.30); MEAN CORPUS HGB CONC 30.9 g/dL (32.0-36.0); MEAN CORPUSCULAR HEMOGLOB 26.9 pg (26.0-34.0); MEAN PLATELET VOLUME 8.3 fL (9.2-13.0); MONOCYTES 2.1 %; MONOCYTES ABSOLUTE 0.11 10/3/uL (0.21-1.20); NEUTROPHILS 88.8 %; NEUTROPHILS ABSOLUTE 4.69 10/3/uL (2.02-8.40); PLATELET COUNT 293 10/3/uL (150-400); RBC DISTRIBUTION WIDTH 15.1 % (12.0-16.0); RED CELL COUNT 3.27 10/6/uL (4.0-5.6)
[2017-03-05 10:51] LABS: ER CBC TAT 0 Hrs 07 Mins; MANUAL DIFF NO %; MEAN CORPUSCULAR VOLUME 87.2 fL (80-100); WHITE BLOOD CELLS 5.3 10/3/uL (4.5-10.5)
[2017-03-05 10:55] LABS: ASCORBIC ACID (UR NOT ORDER) NEG (NEG); BILIRUBIN, URINE NEGATIVE (NEG); ER URINALYSIS TAT 0 Hrs 09 Mins; KETONE, URINE NEGATIVE (NEG); LEUKOCYTE ESTERASE(NOT OR NEG (NEG); NITRITE (URINE) NEG (NEG); WBC (NOT ORDERED) (RFLEX) < 1 (0-5)
[2017-03-05 10:58] LABS: INTERNATIONAL NORMAL RATI 2.3 UNITS (-); PARTIAL THROMBO TIME 48.5 SEC (22.5-37.2); PROTIME (NOT ORD) 24.7 SEC (12.0-14.5)
[2017-03-05 11:03] LABS: BUN (BLOOD UREA NITROGEN) 16 MG/DL (6-23); CALCIUM, SERUM 8.5 MG/DL (8.5-10.4); CHLORIDE, SERUM 99 MMOL/L (96-112); CO2 (CARBON DIOXIDE) 35 MMOL/L (24-34); CREATININE 0.68 MG/DL (0.55-1.02); GFR AFRICAN AMERICAN 107 ML/MIN (>=60); GFR NON AFRICAN AMERICAN 92 ML/MIN (>=60); GLUCOSE, SERUM 190 MG/DL (60-99); POTASSIUM, SERUM 3.3 MMOL/L (3.5-5.3); SODIUM, SERUM 137 MMOL/L (135-148)
[2017-03-05 11:08] LABS: LACTATE 1.1 MMOL/L (0.3-2.4)
[2017-03-05 11:28] LABS: PROCALCITONIN 0.05 ng/mL (<0.5)
[~2017-03-05 11:46] MED LIST changes: +AMB5 PO; +B121000P IM; +C5 PO; +CAT1 PO; +CORTEF20 MG PO; +DESMOPRESSIN NAS; +FLEETS ENEMA PR; +GAS-X80 MG PO; +LANTUSCART SC; +LEVOTHYROXIN100 MCG PO; +LIDODERM TOP; +MAALOX PO; +METPAKSF PO; +MICONAZOLE CREA30 GM TOP; +MOMUD PO; +MSCONT60 PO; +NITROSTAT0.4 MG SL; +NOVOLOG SC; +OCEAN NAS; +OXYCOD PO; +OXYCON10 PO; +PEP20 PO; +TESSALON200 MG PO
[2017-03-05] MEDS ORDERED: CORTEF5 PO ×4 (13:05→13:08)
[2017-03-05] MEDS ORDERED: SOLU CORTEF IM (13:09)
[2017-03-05] MEDS ORDERED: LANTUS SC (13:11)
[2017-03-05] MEDS ORDERED: SYN1 PO (13:11)
[2017-03-05] MEDS ORDERED: DDAVP NASAL SPRAY NAS (13:11)
[2017-03-05] MEDS ORDERED: HUMALOG SC (13:12)
[2017-03-05] MEDS ORDERED: X5 PO (13:13)
[2017-03-05] MEDS ORDERED: GLUCAGON IM (13:13)
[2017-03-05] MEDS ORDERED: CIP2 PO (13:14)
[2017-03-05] MEDS ORDERED: C25 PO (13:14)
[2017-03-05] MEDS ORDERED: CAT1 PO (13:14)
[2017-03-05] MEDS ORDERED: B121000P IM (13:15)
[2017-03-05] MEDS ORDERED: LOP25 PO (13:15)
[2017-03-05] MEDS ORDERED: ASAB PO (13:15)
[2017-03-05] MEDS ORDERED: MSCONT60 PO (13:15)
[2017-03-05] MEDS ORDERED: AMB10 PO (13:16)
[2017-03-05] MEDS ORDERED: ROXICODONE15 MG PO (13:16)
[2017-03-05] MEDS ORDERED: MIRALAX POWDER1 PKT PO (13:17)
[2017-03-05] MEDS ORDERED: LACTAID PO (13:17)
[2017-03-05] MEDS ORDERED: LEVSINTAB PO (13:17)
[2017-03-05] MEDS ORDERED: ZOFRAN4 PO (13:18)
[2017-03-05] MEDS ORDERED: MYLANTA SUSPENSION PO (13:19)
[2017-03-05] MEDS ORDERED: BISR PR (13:20)
[2017-03-05] MEDS ORDERED: DIMENHY50I PO (13:20)
[2017-03-05] MEDS ORDERED: FLEETS ENEMA PR (13:21)
[2017-03-05] MEDS ORDERED: GLYCERIN SUPPOSITORY PR (13:21)
[2017-03-05] MEDS ORDERED: OCEAN NAS (13:22)
[2017-03-05] MEDS ORDERED: AFRIN15 NAS (13:22)
[2017-03-05] MEDS ORDERED: BEN25 PO (13:24)
[2017-03-05] MEDS ORDERED: ROBITUSSIN CF PO (13:24)
[2017-03-05] MEDS ORDERED: ACET500CAP PO (13:25)
[2017-03-05] MEDS ORDERED: EXCEDRIN TENSI1 EACH PO (13:26)
[2017-03-05] MEDS ORDERED: REFRESH OPH (13:27)
[2017-03-05] MEDS ORDERED: VITAMIN D3 PO (13:27)
[2017-03-05] MEDS ORDERED: PVC V (13:28)
[2017-03-05] MEDS ORDERED: MUSCLE RUB TOP (13:31)
[2017-03-05] MEDS ORDERED: LIDOCAINE 5% TOP (13:31)
[2017-03-05 16:55] LABS: DIRECT BILIRUBIN 0.1 MG/DL (0.0-0.4); FERRITIN 94 NG/ML (8-252); INDIRECT BILIRUBIN(NOT ORDER) 0.3 MG/DL (0.1-0.9); IRON BINDING CAPACITY 273 MCG/DL (225-410); IRON, SERUM 25 MCG/DL (35-150); SGOT(AST) 26 U/L (5-40); SGPT(ALT) 19 U/L (5-65); TOTAL BILIRUBIN 0.4 MG/DL (0-1.2); TOTAL PROTEIN 6.5 G/DL (6.0-8.5)
[2017-03-05 16:56] LABS: ALBUMIN 3.4 G/DL (3.5-5.0)
[2017-03-05 16:57] LABS: ALKALINE PHOSPHATASE 457 U/L (45-117)
[2017-03-06 06:58] LABS: BASOPHILS 0.3 %; BASOPHILS ABSOLUTE 0.02 10/3/uL (0.0-0.16); EOSINOPHILS 1.8 %; EOSINOPHILS ABSOLUTE 0.12 10/3/uL (0.0-0.53); HEMOGLOBIN 9.8 g/dL (12.0-16.0); IMMATURE GRANULOCYTES 0.3 %; IMMATURE GRANULOCYTES ABSOLUTE 0.02 10/3/uL (0.0-0.11); LYMPHOCYTES 35.2 %; LYMPHOCYTES ABSOLUTE 2.36 10/3/uL (0.67-4.30); MEAN CORPUS HGB CONC 30.4 g/dL (32.0-36.0); MEAN CORPUSCULAR HEMOGLOB 26.7 pg (26.0-34.0); MEAN CORPUSCULAR VOLUME 87.7 fL (80-100); MEAN PLATELET VOLUME 8.8 fL (9.2-13.0); MONOCYTES 7.9 %; MONOCYTES ABSOLUTE 0.53 10/3/uL (0.21-1.20); NEUTROPHILS 54.5 %; NEUTROPHILS ABSOLUTE 3.66 10/3/uL (2.02-8.40); PLATELET COUNT 325 10/3/uL (150-400); RBC DISTRIBUTION WIDTH 15.3 % (12.0-16.0); RED CELL COUNT 3.67 10/6/uL (4.0-5.6); WHITE BLOOD CELLS 6.7 10/3/uL (4.5-10.5)
[2017-03-06 07:00] LABS: GLYCOHEMOGLOBIN (HbA1c) 5.4 % (4.7-6.1)
[2017-03-06 07:00] LABS: HEMATOCRIT 32.2 % (36.0-48.0); MANUAL DIFF NO %
[2017-03-06 07:06] LABS: INTERNATIONAL NORMAL RATI 2.4 UNITS (-); PROTIME (NOT ORD) 25.7 SEC (12.0-14.5)
[2017-03-06 07:13] LABS: CALCIUM, SERUM 8.8 MG/DL (8.5-10.4); CHLORIDE, SERUM 105 MMOL/L (96-112); CO2 (CARBON DIOXIDE) 34 MMOL/L (24-34); CREATININE 0.68 MG/DL (0.55-1.02); GFR AFRICAN AMERICAN 107 ML/MIN (>=60); GFR NON AFRICAN AMERICAN 92 ML/MIN (>=60); POTASSIUM, SERUM 3.8 MMOL/L (3.5-5.3); SODIUM, SERUM 143 MMOL/L (135-148)
[2017-03-06 07:14] LABS: BUN (BLOOD UREA NITROGEN) 12 MG/DL (6-23); GLUCOSE, SERUM 101 MG/DL (60-99)
[2017-03-07 06:30] LABS: INTERNATIONAL NORMAL RATI 2.1 UNITS (-); PROTIME (NOT ORD) 23.7 SEC (12.0-14.5)
[2017-03-07 06:42] LABS: ALBUMIN 2.9 G/DL (3.5-5.0); BUN (BLOOD UREA NITROGEN) 12 MG/DL (6-23); CALCIUM, SERUM 8.3 MG/DL (8.5-10.4); CHLORIDE, SERUM 107 MMOL/L (96-112); CO2 (CARBON DIOXIDE) 34 MMOL/L (24-34); CREATININE 0.69 MG/DL (0.55-1.02); GFR AFRICAN AMERICAN 107 ML/MIN (>=60); GFR NON AFRICAN AMERICAN 92 ML/MIN (>=60); GLUCOSE, SERUM 89 MG/DL (60-99); PHOSPHORUS, SERUM 2.5 MG/DL (2.5-4.5); POTASSIUM, SERUM 3.7 MMOL/L (3.5-5.3); SODIUM, SERUM 146 MMOL/L (135-148)
[2017-03-08 06:41] LABS: INTERNATIONAL NORMAL RATI 2.1 UNITS (-); PROTIME (NOT ORD) 23.1 SEC (12.0-14.5)
[2017-03-08 06:54] LABS: BUN (BLOOD UREA NITROGEN) 12 MG/DL (6-23); CALCIUM, SERUM 8.3 MG/DL (8.5-10.4); CHLORIDE, SERUM 105 MMOL/L (96-112); CO2 (CARBON DIOXIDE) 36 MMOL/L (24-34); CREATININE 0.68 MG/DL (0.55-1.02); GFR AFRICAN AMERICAN 107 ML/MIN (>=60); GFR NON AFRICAN AMERICAN 92 ML/MIN (>=60); GLUCOSE, SERUM 173 MG/DL (60-99); POTASSIUM, SERUM 3.8 MMOL/L (3.5-5.3); SODIUM, SERUM 144 MMOL/L (135-148)
[2017-03-08] MEDS ORDERED: DURICEF PO (15:22)
== END 2017-03-08 17:44 | disposition home or self-care (01) | DRG 603 ==
LOC: ER 11:46 → 2SO 13:40
PROVIDERS: Emergency Medicine; Internal Medicine
DX: L03.116 Cellulitis of left lower limb (principal); K31.84 Gastroparesis; E23.0 Hypopituitarism; E27.40 Unspecified adrenocortical insufficiency; E11.43 Type 2 diabetes mellitus with diabetic autonomic (poly)neuropathy; E24.9 Cushing's syndrome, unspecified; E11.9 Type 2 diabetes mellitus without complications; D64.9 Anemia, unspecified; E03.9 Hypothyroidism, unspecified; S83.207A Unspecified tear of unspecified meniscus, current injury, left knee, initial encounter; E87.6 Hypokalemia; G47.33 Obstructive sleep apnea (adult) (pediatric); G89.29 Other chronic pain; M19.90 Unspecified osteoarthritis, unspecified site; E66.9 Obesity, unspecified; M81.0 Age-related osteoporosis without current pathological fracture; F41.9 Anxiety disorder, unspecified; Z88.2 Allergy status to sulfonamides; Z88.8 Allergy status to other drugs, medicaments and biological substances; Z88.6 Allergy status to analgesic agent; Z88.5 Allergy status to narcotic agent; Z88.1 Allergy status to other antibiotic agents; Z87.11 Personal history of peptic ulcer disease; Z98.890 Other specified postprocedural states
CPT/HCPCS: 71010; 73721-LT; 80048; 80069; 80076; 81001; 82607; 82728; 82962; 83036; 83540; 83550; 83605; 83735; 83880; 84145; 85025; 85610; 85730; 87040; 97161-GP; 99285; A9270-GY; G8978-CH-GP; G8979-CH-GP; G8980-CH-GP; J0690